=== PATIENT | female | born 1980 | race Caucasian/White ===

== ENCOUNTER 2018-01-04 07:08 | Outpatient (CLI) | payer OTHER | END 2018-01-04 07:11 | disposition home or self-care (01) | LOC: SONOGRAMA 07:08 | DX: E04.1 Nontoxic single thyroid nodule (principal) ==

== ENCOUNTER 2018-08-09 09:09 | Outpatient (CLI) | payer OTHER | END 2018-08-09 13:19 | disposition home or self-care (01) | LOC: SONOGRAMA 09:09 | DX: E04.1 Nontoxic single thyroid nodule (principal) ==